=== PATIENT | male | born 1935 | race Caucasian/White ===

== ENCOUNTER 2022-03-12 16:25 | Emergency (ER) | payer MEDICARE, OTHER ==
--- NOTE | 2022-03-12 16:50 | ED Physician Documentation ---
PD HPI LOWER EXT INJURY - Stated complaint Stated Complaint: L LEG PX - Chief complaint Chief Complaint: Ext Problem - History obtained from History obtained from: Patient - Additional information Additional information: 86-year-old gentleman with history of stroke, otherwise generally fairly healthy was referred for the walk-in clinic for the evaluation of potential DVT in the left leg. He has had left calf pain for the last 4 days. There is no injury. It is mild at rest but worse when he walks. He denies history of DVT or PE. Review of Systems Constitutional: denies: Fever, Chills Throat: reports: Reviewed and negative Cardiac: reports: Reviewed and negative Respiratory: reports: Reviewed and negative PD PAST MEDICAL HISTORY - Present Medications Home Medications: Ambulatory Orders Medication Instructions Recorded Confirmed Aspirin [Aspirin EC] 325 mg PO DAILY 03/12/22 03/12/22 Atorvastatin Calcium [Lipitor] 80 mg PO DAILY 03/12/22 03/12/22 Levetiracetam [Spritam] 1,000 mg PO DAILY 03/12/22 03/12/22 Lisinopril [Zestril] 5 ng PO DAILY 03/12/22 03/12/22 Tamsulosin [Flomax] 0.4 mg PO DAILY 03/12/22 03/12/22 - Allergies Allergies/Adverse Reactions: Allergies Allergy/AdvReac Type Severity Reaction Status Date / Time No Known Drug Allergies Allergy Verified 03/12/22 16:35 PD ED PE NORMAL - Vitals Vital signs reviewed: Yes - General General: Alert and oriented X 3, No acute distress - Extremities Extremities: Other (No clear asymmetry of the legs, pedal perfusion bilaterally is normal. I am unable to elicit any tenderness of the left calf. He denies any pain above the knee.) - Neuro Neuro: Alert and oriented X 3, Normal speech - Psych Psych: Normal mood, Normal affect Results - Vitals Vitals: Vital Signs - 24 hr 03/12/22 03/12/22 16:31 18:14 Temperature 36.6 C Heart Rate 59 L 61 Respiratory 16 17 Rate Blood Pressure 121/48 L 122/65 O2 Saturation 99 99 Oxygen O2 Source Room air - Rads (name of study) Left leg DVT ultrasound Radiology: Prelim report reviewed (Negative per tech) Departure - Departure Disposition: 01 Home, Self Care Clinical Impression: Pain of left calf Condition: Good Record reviewed to determine appropriate education?: Yes Instructions: ED Muscle Pain Leg Cramps Comments: Ultrasound of your leg showed no evidence of blood clot or other abnormality. Follow-up with your doctor at the end of the week for recheck. Return for new or worsening symptoms. It is fine to use Tylenol heat and gentle stretching for the pain as well. Discharge Date/Time: 03/12/22 18:18
--- OUTSIDE RECORDS SUMMARY | 2022-03-12 17:02 | EXTERNAL MEDICAL SUMMARY RPT | Continuity of Care Document ---
:1935 Author Organization [facility] Address [address] [place] [address] Phone Care Team Providers Name Role Phone Unavailable Unavailable Unavailable Nataly Bookre Unavailable Unavailable Allergies No information. Encounters No information. Functional Status No information. Immunizations No information. Medications date description facility [id number] lisinopril [facility] [place] [id number]+0000 lisinopril [facility] [place] [id number]+0000 tamsulosin [facility] [place] [id number]+0000 aspirin [facility] [place] [id number]+0000 aspirin [facility] [place] [id number]+0000 atorvastatin [facility] [place] [id number]+0000 atorvastatin [facility] [place] [id number]+0000 lisinopril [facility] [place] [phone]+0000 lisinopril [facility] [place] [phone]+0000 lisinopril [facility] [place] [id number]+0000 lisinopril [facility] [place] [id number]+0000 levetiracetam [facility] [place] [id number]+0000 levetiracetam [facility] [place] [phone]+0000 atorvastatin [facility] [place] [id number]+0000 aspirin [facility] [place] [id number]+0000 tamsulosin [facility] [place] [id number]+0000 atorvastatin [facility] [place] [id number]+0000 atorvastatin [facility] [place] [phone]+0000 aspirin [facility] [place] [id number]+0000 tamsulosin [facility] [place] [id number]+0000 tamsulosin [facility] [place] [id number]+0000 atorvastatin [facility] [place] [phone]+0000 levetiracetam [facility] [place] [id number]+0000 levetiracetam [facility] [place] [id number]+0000 levetiracetam [facility] [place] [id number]+0000 levetiracetam [facility] [place] [phone]+0000 tamsulosin [facility] [place] [phone]+0000 tamsulosin [facility] [place] Problems No information. Procedures date description facility [id number]+0000 Visit Code Hold [facility] [place] [id number]+0000 Visit Code Hold [facility] [place] [id number]+0000 Visit Code Hold [facility] [place] Results/Labs test date author facility value unit interpret ation Result panel 1 (unknown) (no (unknown) (unknown) (no value) (units (unk nown) date) unknown) (unknown) (no (unknown) (unknown) [id number] (units (unkn own) date) unknown) (unknown) (no (unknown) (unknown) 03/09/22 (units (unkno wn) date) unknown) (unknown) (no (unknown) (unknown) 1. No biliary or (units (unknown) date) pancreatic ductal unknown) dilatation. (unknown) (no (unknown) (unknown) [address] (units (unknown) date) unknown) (unknown) (no (unknown) (unknown) 2. Gallbladder is (units (unknown) date) not distended. No unknown) gallstones seen. (unknown) (no (unknown) (unknown) 3. Small T2 (units (un known) date) hyperintense cysts unknown) in the liver and kidneys. (unknown) (no (unknown) (unknown) 4. (units (unkno wn) date) Diverticulosis. unknown) (unknown) (no (unknown) (unknown) Accession Number: (units (unknown) date) [id number] unknown) (unknown) (no (unknown) (unknown) Age/Sex: 86 / M (units (unknown) date) Date of Service: unknown) (unknown) (no (unknown) (unknown) [place], [place] (units ( unknown) date) [id number] unknown) (unknown) (no (unknown) (unknown) Approved by: (units (u nknown) date) Abel Hensley M.D. unknown) on 03/10/2022 at 10:26 (unknown) (no (unknown) (unknown) Bones and soft (units (unknown) date) tissues: No unknown) ventral hernias. Bone marrow is of normal overall (unknown) (no (unknown) (unknown) Bowel and (units (unkn own) date) peritoneum: unknown) Unenhanced bowel loops are normal in caliber. (unknown) (no (unknown) (unknown) COMPARISON: None. (units (unknown) date) unknown) (unknown) (no (unknown) (unknown) Coronal HASTE (units ( unknown) date) through the unknown) abdomen, axial 2-D FLASH in- and [id number], and (unknown) (no (unknown) (unknown) : 1935 (units (unknown) date) Acct:[id number] unknown) (unknown) (no (unknown) (unknown) Dictated by: (units (u nknown) date) Abel Hensley M.D. unknown) on 03/10/2022 at 10:20 (unknown) (no (unknown) (unknown) Diverticulosis. (units (unknown) date) No unknown) (unknown) (no (unknown) (unknown) FINDINGS: (units (unkn own) date) unknown) (unknown) (no (unknown) (unknown) IMPRESSION: (units (un known) date) unknown) (unknown) (no (unknown) (unknown) INDICATIONS: (units (u nknown) date) Personal history unknown) of other diseases of the digestiv (unknown) (no (unknown) (unknown) Image quality: (units (unknown) date) Excellent. unknown) (unknown) (no (unknown) (unknown) [facility] (units (unknown) date) unknown) (unknown) (no (unknown) (unknown) Loc: MRI (units (unkno wn) date) unknown) (unknown) (no (unknown) (unknown) Lung bases: No (units (unknown) date) basal pleural unknown) effusions. Heart size is normal. (unknown) (no (unknown) (unknown) Magnetic (units (unkno wn) date) Resonance Report unknown) (unknown) (no (unknown) (unknown) Nodes and (units (unkn own) date) vessels: No unknown) retroperitoneal or mesenteric adenopathy by size (unknown) (no (unknown) (unknown) Ordering (units (unkno wn) date) Provider: unknown) Tg Rivera D.O. (unknown) (no (unknown) (unknown) Other solid (units (un known) date) organs: Liver is unknown) normal in size. Small T2 hyperintense cysts. (unknown) (no (unknown) (unknown) PROCEDURE: MR (units ( unknown) date) ABDOMEN WO CON unknown) (unknown) (no (unknown) (unknown) Pancreas and (units (u nknown) date) biliary system: unknown) Intra- and extra-hepatic biliary ducts are non (unknown) (no (unknown) (unknown) Pancreas is (units (un known) date) normal in unknown) morphology, without adjacent soft tissue edema. (unknown) (no (unknown) (unknown) Pancreatic duct (units (unknown) date) is unknown) (unknown) (no (unknown) (unknown) Patient: (units (unkno wn) date) Mars Cedeño N unknown) MR#: M (unknown) (no (unknown) (unknown) Procedure: MR (units ( unknown) date) abdomen wo con unknown) (unknown) (no (unknown) (unknown) Signed (units (unkno wn) date) unknown) (unknown) (no (unknown) (unknown) Spleen is (units (unkn own) date) unknown) (unknown) (no (unknown) (unknown) T2 FSE with fat (units (unknown) date) saturation through unknown) the biliary system and pancreas. Oblique (unknown) (no (unknown) (unknown) TECHNIQUE: (units (unk nown) date) unknown) (unknown) (no (unknown) (unknown) and inferior vena (units (unknown) date) cava are normal in unknown) size. Atherosclerotic plaque is present. (unknown) (no (unknown) (unknown) axial thin-slice (units (unknown) date) HASTE, radial unknown) thick-slab HASTE centered on the extrahepatic (unknown) (no (unknown) (unknown) bile ducts. (units (un known) date) unknown) (unknown) (no (unknown) (unknown) breath-hold (units (un known) date) unknown) (unknown) (no (unknown) (unknown) coronal and (units (un known) date) unknown) (unknown) (no (unknown) (unknown) criteria. Aorta (units (unknown) date) unknown) (unknown) (no (unknown) (unknown) dilated. (units (unkno wn) date) unknown) (unknown) (no (unknown) (unknown) distended. No (units ( unknown) date) unknown) (unknown) (no (unknown) (unknown) free fluid. (units (un known) date) unknown) (unknown) (no (unknown) (unknown) gallstones (units (unk nown) date) identified. unknown) (unknown) (no (unknown) (unknown) hydronephrosis. (units (unknown) date) Small T2 unknown) hyperintense cysts. (unknown) (no (unknown) (unknown) normal in (units (unkn own) date) caliber, without unknown) developmental anomalies. Gallbladder is not (unknown) (no (unknown) (unknown) normal in size. (units (unknown) date) No adrenal unknown) nodules. Both kidneys are normal in size, without (unknown) (no (unknown) (unknown) signal. (units (unkno wn) date) unknown) Social History date description facility + Never smoker [facility] [place] Vital Signs date measurement value units [id number]+0000 BMI BMI 21.78 kg/m2 19212857248700+0000 BP_diastolic BP_diastolic 69 mm[H g] 17512250016862+0000 BP_systolic BP_systolic 117 mm[Hg] 23119974970261+0000 heart_rate heart_rate 70 /min 58265946751553+0000 height_metric height_metric 182.88 cm 22326128692895+0000 height_standard height_standard 72 in [id number]+0000 respiration_rate respiration_rate 16 /min 84886229626278+0000 temperature_metric temperature_metric 36.11 C [id number]+0000 temperature_standard temperature_standard 9 7 F 29247316987784+0000 weight_metric weight_metric 72.57 kg 82204765148774+0000 weight_standard weight_standard 160 lb 59160401685308+0000 BMI BMI 21.78 kg/m2 25523470658347+0000 BP_diastolic BP_diastolic 58 mmHg 50584034318898+0000 BP_systolic BP_systolic 116 mmHg 83970217271006+0000 heart_rate heart_rate 63 /min 11036805767638+0000 height_metric height_metric 182.88 cm 57708976986526+0000 height_standard height_standard 72 in 56881931566231+0000 respiration_rate respiration_rate 15 /min 96438281955561+0000 temperature_metric temperature_metric 36.39 C 25644944550348+0000 temperature_standard temperature_standard 9 7.5 F 43341402933021+0000 weight_metric weight_metric 72.57 kg 11731784090876+0000 weight_standard weight_standard 160 lb
[2022-03-12 18:15] VITALS: BP 122/65
--- NOTE | 2022-03-12 18:43 | Ultrasound Report ---
PROCEDURE: Duplex Ext Veins Left INDICATIONS: left calf pain, swelling; ? dvt TECHNIQUE: Real-time imaging, as well as color and pulse Doppler interrogation, were performed of the lower extr emity deep veins from the inguinal ligament to the popliteal fossa. COMPARISON: None. FINDINGS: The deep veins are normally compressible, and free of intraluminal thrombus. Color and pu lse Doppler demonstrate normal phasic intraluminal flow. There is normal augmentation response to di stal compression maneuver. IMPRESSION: No evidence of left lower extremity deep venous thrombosis. Reviewed by: Amandeep Diego MD on 03/12/2022 6:41 PM PDT Approved by: Amandeep Diego MD on 03/12/2022 6:41 PM PDT Station ID: [id number]
== END 2022-03-12 18:18 | disposition home or self-care (01) ==
LOC: ED 16:25
DX: M79.662 Pain in left lower leg (principal)
CPT/HCPCS: 99282; 99284

== ENCOUNTER 2022-11-03 11:42 | Outpatient (CLI) | payer MEDICARE, OTHER ==
[2022-11-03] MEDS ORDERED: iohexoL-300 100 ML VIAL ONE (11:55)
[2022-11-03] MEDS ORDERED: iohexoL-300 100 ML VIAL IVP ONE (12:18)
--- NOTE | 2022-11-03 15:27 | CT Report ---
PROCEDURE: IVP INDICATIONS: PROSTATIC HYPERPLASIA CONTRAST: 140ml Omnipaque 300 TECHNIQUE: After the administration of intravenous contrast, 5 mm thick sections acquired from the diaphragms to the symphysis. 5 mm thick coronal and sagittal reformats were acquired. For radiation dose reducti on, the following was used: automated exposure control, adjustment of mA and/or kV according to parisa ent size. COMPARISON: None. FINDINGS: Image quality: Excellent. Urinary system: Both kidneys are mildly atrophic in size. Scattered subcentimeter bilateral low-atte nuation foci are present. No hydronephrosis or nephrolithiasis on pre-contrast images. No solid mass es or complex cysts which require follow up. The opacified renal calyces and ureters appear normal, w ithout filling defect. Bladder wall thickness is normal, accounting for underdistention. No calcifie d bladder stones. Potential filling defects within the bladder cannot be evaluated as the bladder did not fill with contrast during exam. OTHER Lung bases and heart: Unremarkable. Liver: Inferior medial right hepatic lobe cyst measuring 7 mm, Hounsfield units 15 is present. This i s most consistent with a simple cyst. Gallbladder and biliary tree: L bladder is unremarkable. No biliary dilation. Spleen: No splenomegaly. Pancreas: No pancreatic ductal dilation. Adrenals: No adrenal nodule. Bowel and peritoneum: No bowel distension. No pathologic free fluid. Significant colonic diverticula are present without associated inflammatory change. Abdominal Lymph nodes: No central or retroperitoneal adenopathy. Vessels: Unremarkable. Reproductive organs: Unremarkable. Pelvic Lymph nodes: Unremarkable. Bones: No aggressive osseous abnormality. Other: Small fat-containing inguinal hernias are present.. Prostate gland is mildly prominent. IMPRESSION: No renal, ureteral or bladder calculi. It is noted that the bladder did not fill with contrast during the exam limiting evaluation for filling defects which can indicate mass. Prostate is enlarged. Scattered bilateral subcentimeter low-attenuation renal foci suggestive of simple cysts although too small to definitively characterize. Reviewed by: Naida Goodrich MD on 11/03/2022 3:26 PM PDT Approved by: Naida Goodrich MD on 11/03/2022 3:26 PM PDT Station ID: [id number]
== END 2022-11-03 11:43 | disposition home or self-care (01) ==
LOC: DI 11:42
PROVIDERS: ATTEND Urology
DX: R31.29 Other microscopic hematuria (principal); N40.0 Benign prostatic hyperplasia without lower urinary tract symptoms
CPT/HCPCS: 74178; Q9967

== ENCOUNTER 2023-04-08 12:01 | Emergency (ER) | payer MEDICARE, OTHER ==
--- OUTSIDE RECORDS SUMMARY | 2023-04-08 12:26 | EXTERNAL MEDICAL SUMMARY RPT | Continuity of Care Document ---
Author Name Unknown Address [address] [place] [address] Phone Organization [facility] Address [address] [place] [address] Phone Care Team Providers Care Opener Verifier [employer] Name Role Phone Unavailable Unavailable Unavailable Nataly Booker, Maynor Unavailable Unavailable Henriquez Patient Registrar Ii, Priya Unavaila ble Unavailable Medications date description facility 2023-04-08 00:00 lisinopril [facility] [place] 2023-04-08 00:00 lisinopril [facility] 2023-04-08 00:00 tamsulosin [facility] [place] 2023-04-08 00:00 tamsulosin [facility] [place] 2023-04-08 00:00 aspirin [facility] [place] 2023-04-08 00:00 aspirin [facility] [place] 2023-04-08 00:00 aspirin [facility] [place] 2023-04-08 00:00 aspirin [facility] [place] 2023-04-08 00:00 atorvastatin [facility] [place] 2023-04-08 00:00 atorvastatin [facility] [place] 2023-04-08 00:00 lisinopril [facility] [place] 2023-04-08 00:00 lisinopril [facility] [place] 2023-04-08 00:00 lisinopril [facility] [place] 2023-04-08 00:00 lisinopril [facility] [place] 2023-04-08 00:00 lisinopril [facility] [place] 2023-04-08 00:00 lisinopril [facility] [place] 2023-04-08 00:00 levetiracetam [facility] [place] 2023-04-08 00:00 levetiracetam [facility] [place] 2023-04-08 00:00 atorvastatin [facility] [place] 2023-04-08 00:00 atorvastatin [facility] [place] 2023-04-08 00:00 aspirin [facility] [place] 2023-04-08 00:00 aspirin [facility] [place] 2023-04-08 00:00 tamsulosin [facility] [place] 2023-04-08 00:00 tamsulosin [facility] [place] 2023-04-08 00:00 atorvastatin [facility] [place] 2023-04-08 00:00 atorvastatin [facility] [place] 2023-04-08 00:00 aspirin [facility] [place] 2023-04-08 00:00 aspirin [facility] [place] 2023-04-08 00:00 tamsulosin [facility] [place] 2023-04-08 00:00 tamsulosin [facility] [place] 2023-04-08 00:00 atorvastatin [facility] [place] 2023-04-08 00:00 atorvastatin [facility] [place] 2023-04-08 00:00 levetiracetam [facility] [place] 2023-04-08 00:00 levetiracetam [facility] [place] 2023-04-08 00:00 levetiracetam [facility] [place] 2023-04-08 00:00 levetiracetam [facility] [place] 2023-04-08 00:00 levetiracetam [facility] [place] 2023-04-08 00:00 levetiracetam [facility] [place] 2023-04-08 00:00 tamsulosin [facility] [place] 2023-04-08 00:00 tamsulosin [facility] [place] Problems date description facility 2023-04-08 00:00 Blood in urine [facility] [place] 2023-04-08 00:00 Bilirubinuria [facility] [place] 2023-04-08 00:00 Abdominal pain, epigastric [facility] [place] 2023-04-08 00:00 Epigastric pain [facility] [place] 2023-04-08 00:00 Dysuria [facility] [place] 2023-04-08 00:00 Hematuria, unspecified [facility] [place] 2023-04-08 00:00 Biliuria [facility] [place] Procedures date description facility 2023-04-08 00:00 Visit Code Hold [facility] [place] 2023-04-08 00:00 POC URINALYSIS DIP [facility] [place] Results/Labs test date facility value unit notes Social History date description facility 2023-04-08 00:00 Never smoker [facility] [place] Vital Signs date measurement value units 2023-04-08 00:00 BMI 22.30 kg/m2 2023-04-08 00:00 BP_diastolic 65 mmHg 2023-04-08 00:00 BP_systolic 120 mmHg 2023-04-08 00:00 heart_rate 74 /min 2023-04-08 00:00 height_metric 182.88 cm 2023-04-08 00:00 height_standard 72 in 2023-04-08 00:00 respiration_rate 16 /min 2023-04-08 00:00 temperature_metric 36.56 C 2023-04-08 00:00 temperature_standard 97.8 F 2023-04-08 00:00 weight_metric 74.3 kg 2023-04-08 00:00 weight_standard 163.8 lb
[2023-04-08 12:47] LABS: BASOPHILS % (AUTO) 0.5 %; EOSINOPHILS % (AUTO) 0.4 %; HCT - HEMATOCRIT 43.5 % (42.0-52.0); LYMPHOCYTES # (AUTO) 1.8 10^3/uL (1.5-3.5); MEAN CORPUSCULAR HGB CONC 32.2 g/dL (32.0-36.0); MEAN CORPUSCULAR VOLUME 99.5 fL (80.0-94.0); MEAN PLATELET VOLUME 9.3 fL (7.4-11.4); MONOCYTES # (AUTO) 0.7 10^3/uL (0.0-1.0); MONOCYTES % (AUTO) 8.1 %; NEUTROPHILS # (AUTO) 5.7 10^3/uL (1.5-6.6); NEUTROPHILS % (AUTO) 68.5 %; PLT - PLATELET COUNT 182 10^3/uL (130-450); RED BLOOD COUNT 4.37 10^6/uL (4.70-6.10); RED CELL DISTRIBUTION WIDTH 12.6 % (12.0-15.0); WHITE BLOOD COUNT 8.3 x10^3/uL (4.8-10.8)
[2023-04-08 12:48] LABS: BILIRUBIN,URINE NEGATIVE (NEGATIVE); GLUCOSE, URINE (UA) NEGATIVE (NEGATIVE); KETONES,URINE (UA) NEGATIVE (NEGATIVE); LEUKOCYTE ESTERASE, URINE NEGATIVE (NEGATIVE); NITRITE,URINE NEGATIVE (NEGATIVE); OCCULT BLOOD,URINE MODERATE (NEGATIVE); PH,URINE 6.5 PH (5.0-7.5); PROTEIN,URINE NEGATIVE (NEGATIVE); UROBILINOGEN,URINE 1 (NORMAL) E.U./dL (NORMAL)
[2023-04-08 12:49] LABS: CLARITY,URINE CLEAR (CLEAR)
[2023-04-08 12:58] LABS: BACTERIA,URINE Rare /HPF (None Seen); RBC,URINE 0-5 /HPF (0-5); SQUAMOUS EPITHELIAL CELL,UR RARE Squamous (<= Few); WBC,URINE 0-3 /HPF (0-3)
[2023-04-08 12:59] LABS: ALBUMIN 3.9 g/dL (3.2-5.5); ALBUMIN/GLOBULIN RATIO 1.1 (1.0-2.2); BILIRUBIN,TOTAL 0.8 mg/dL (0.2-1.0); CALCIUM 9.4 mg/dL (8.5-10.3); CREATININE 0.9 mg/dL (0.6-1.3); POTASSIUM 4.2 mmol/L (3.5-4.5); TOTAL PROTEIN 7.6 g/dL (6.4-8.9)
--- NOTE | 2023-04-08 13:39 | ED Physician Documentation ---
History of Present Illness - Stated complaint Stated Complaint: STOMACH PX - Chief complaint Chief Complaint: Abd Pain - Additonal information Additional information: Very pleasant 87-year-old male presents emergency department for evaluation of 3 weeks abdominal pain. Describes it as constant. Mostly upper abdomen with some periumbilical radiation. No fevers, nausea or vomiting. He has a history of pancreatitis as well as GERD but states that this feels entirely different. No melena or hematochezia. He is a non-smoker nondrinker. Was seen at the local walk-in clinic and referred to the ER for further evaluation. Review of Systems Constitutional: denies: Fever Cardiac: reports: Reviewed and negative Respiratory: reports: Reviewed and negative GI: reports: Abdominal Pain. denies: Nausea, Vomiting, Constipation, Bloody / black stool : reports: Reviewed and negative Skin: reports: Reviewed and negative PD PAST MEDICAL HISTORY - Past Medical History Neuro: CVA, Seizure disorder GI: GERD, Pancreatitis - Past Surgical History General: Hiatal hernia repair - Present Medications Home Medications: Ambulatory Orders Medication Instructions Recorded Confirmed Aspirin [Aspirin EC] 325 mg PO DAILY 03/12/22 03/12/22 Atorvastatin Calcium [Lipitor] 80 mg PO DAILY 03/12/22 03/12/22 Levetiracetam [Spritam] 1,000 mg PO DAILY 03/12/22 03/12/22 Lisinopril [Zestril] 5 ng PO DAILY 03/12/22 03/12/22 Tamsulosin [Flomax] 0.4 mg PO DAILY 03/12/22 03/12/22 - Allergies Allergies/Adverse Reactions: Allergies Allergy/AdvReac Type Severity Reaction Status Date / Time No Known Drug Allergies Allergy Verified 03/12/22 16:35 - Social History Does the pt smoke?: No Smoking Status: Never smoker Does the pt drink ETOH?: Yes Does the pt have substance abuse?: No - Immunizations Immunizations are current?: Yes - POLST Patient has POLST: No PD ED PE NORMAL - General General: Alert and oriented X 3, No acute distress - Cardiac Cardiac: RRR, No murmur - Respiratory Respiratory: No respiratory distress, Clear bilaterally - Abdomen Abdomen: Normal bowel sounds, Soft. No: Non tender (No percussion tenderness. No light or deep palpation tenderness. I did not elicit flank or CVA tenderness. He does have a reducible umbilical hernia) - Back Back: No CVA TTP - Derm Derm: Normal color, Warm and dry, No rash - Extremities Extremities: No deformity - Neuro Neuro: Alert and oriented X 3 Eye Opening: Spontaneous Motor: Obeys Commands Verbal: Oriented GCS Score: 15 Results - Vitals Vitals: Vital Signs - 24 hr 04/08/23 12:18 Temperature 37.1 C Heart Rate 65 Respiratory 18 Rate Blood Pressure 115/86 H O2 Saturation 98 Oxygen O2 Source Room air - Labs Labs: Laboratory Tests 04/08/23 04/08/23 04/08/23 12:35 12:40 12:40 WBC 8.3 RBC 4.37 L Hgb 14.0 Hct 43.5 MCV 99.5 H MCH 32.0 H MCHC 32.2 RDW 12.6 Plt Count 182 MPV 9.3 Neut # (Auto) 5.7 Lymph # (Auto) 1.8 [place] # (Auto) 0.7 Eos # (Auto) 0.0 Baso # (Auto) 0.0 Absolute Nucleated RBC 0.00 Nucleated RBC % 0.0 Sodium 137 Potassium 4.2 Chloride 100 L Carbon Dioxide 32 Anion Gap 5.0 L BUN 15 Creatinine 0.9 Estimated GFR (MDRD) 80 L Glucose 93 Calcium 9.4 Total Bilirubin 0.8 AST 17 ALT 18 Alkaline Phosphatase 105 Total Protein 7.6 Albumin 3.9 Globulin 3.7 Albumin/Globulin Ratio 1.1 Lipase 11 Urine Color YELLOW Urine Clarity CLEAR Urine pH 6.5 Ur Specific [place] 1.015 Urine Protein NEGATIVE Urine Glucose (UA) NEGATIVE Urine Ketones NEGATIVE Urine Occult Blood MODERATE H Urine Nitrite NEGATIVE Urine Bilirubin NEGATIVE Urine Urobilinogen 1 (NORMAL) Ur Leukocyte Esterase NEGATIVE Urine RBC 0-5 Urine WBC 0-3 Ur Squamous Epith Cells RARE Squamous Urine Bacteria Rare Ur Microscopic Review INDICATED Urine Culture Comments NOT INDICATED - Rads (name of study) ct abd w Relevant Findings:: Final report received (Moderate amount of stool within the colon. No findings of acute pancreatitis. Extensive colonic diverticulosis but no diverticulitis fat-containing right inguinal hernia. Fat-containing periumbilical hernia.) PD Medical Decision Making - ED course Complexity details: reviewed results, re-evaluated patient, d/w patient ED course: Very pleasant well-appearing 87-year-old male presents emergency department for evaluation several weeks upper abdominal pain including pain in the periumbilical area. He has a history of GERD, acid reflux, kidney stones, pancreatitis as well as diverticulitis. On exam he had some generalized upper abdominal pain but was nonfocal. Negative Lambert's. His vital signs were without fever or tachycardia or hypotension. We did obtain CBC, electrolytes and urinalysis. Per my interpretation CBC without acute worrisome abnormality. His electrolytes also showed no worrisome abnormality. He had normal kidney and liver function tests. Urinalysis did show moderate amount of blood. A CT of the abdomen completed to evaluate for possibility of diverticulitis, ureter and renal colic as well as appendicitis and pancreatitis showed multiple incidental findings but no acute source of abdominal pain. These incisional findings include moderate stool within the colon, diverticulosis without diverticulitis, periumbilical and inguinal hernia, remote L2 wedge deformity and pectus excavated him. I discussed the findings with the patient. I suspect the stool burden likely is the cause of his symptoms. He is advised to use some MiraLAX for the next several days. He will follow closely with his PCP. May benefit from a screening colonoscopy. We did discuss the usual emergent return precautions for worsening symptoms including fevers and uncontrolled vomiting. Departure - Departure Disposition: 01 Home, Self Care Clinical Impression: Upper abdominal pain Condition: Stable Record reviewed to determine appropriate education?: Yes Comments: You are seen today in the emergency department because you have been having pain in your upper abdomen and around your bellybutton. As discussed at the bedside your labs did not show any obvious worrisome abnormalities. We did do a CT of your abdomen and as discussed at the bedside there were multiple incidental findings that included an old lumbar compression fracture, 2 hernias, diverticulosis without diverticulitis and likely the most obvious finding which is a fair amount of stool throughout your colon. I am I recommend that you take MiraLAX once or twice daily for the next several days until you have 3 or 4 watery bowel movements. If your symptoms do not improve after use of MiraLAX I would follow closely with your primary doctor. You may at that point benefit from a referral for a colonoscopy to rule out colon cancer as a CT is not sensitive for this. Return to the emergency department for any new or worsening symptoms, fevers uncontrolled vomiting. Forms: PCP List
--- NOTE | 2023-04-08 15:17 | CT Report ---
PROCEDURE: ABDOMEN/PELVIS W INDICATIONS: RUQ,LUQ; periumbilical pain; hx of pancreatitis CONTRAST: 100ml omni 300 TECHNIQUE: After the administration of IV contrast, 5 mm thick sections acquired from the diaphragms to the symp hysis. 5 mm thick coronal and sagittal reformats were acquired. For radiation dose reduction, the f ollowing was used: automated exposure control, adjustment of mA and/or kV according to patient size. COMPARISON: 11/03/2022 FINDINGS: Image quality: Excellent. Lung bases and heart: Unremarkable. Liver: No solid mass. Gallbladder and biliary tree: Within normal limits. Spleen: No splenomegaly. Pancreas: No pancreatic ductal dilation. Adrenals: No adrenal nodule. Kidneys and ureters: No hydronephrosis. No renal cystic lesion which requires follow up. No solid mas s. Bowel and peritoneum: There is a moderate volume of stool seen within the colon. Extensive distal col onic diverticulosis is seen, without findings of active diverticulitis. A normal appendix is seen. No dilated loops of small bowel are seen. The stomach is relatively decompressed at the time of this study, limiting its evaluation. Lymph nodes: No central or retroperitoneal adenopathy. Vessels: No infrarenal aortic aneurysm. Atherosclerotic calcification is seen. PELVIS Reproductive organs: Unremarkable. Bladder: No abnormal wall thickening, accounting for underdistension. Pelvic lymph nodes: No pelvic adenopathy by size criteria. Bones: No aggressive osseous abnormality. Pectus excavatum deformity is partially seen. There is a remote, stable L2 anterior wedge deformity. Focal lower lumbar spine degenerative change i s seen. Other: There is a moderate fat-containing periumbilical hernia. There is a moderately sized right ing uinal hernia seen, containing fat. IMPRESSION: There is a moderate amount of stool seen within the colon. Please correlate with clinical constipatio n. No findings of active pancreatitis are seen. Extensive distal colonic diverticulosis, yet without findings of active diverticulitis. Additional findings: Pectus excavatum deformity Moderate fat-containing periumbilical hernia Remote, stable L2 anterior wedge deformity Focal lower lumbar spine degenerative change Fat-containing right inguinal hernia. Reviewed by: Oscar Xavier MD on 04/08/2023 2:16 PM AKULI Approved by: Oscar Xavier MD on 04/08/2023 2:16 PM AKULI Station ID: [id number]
[2023-04-08 16:16] VITALS: BP 136/75; O2SAT 94
[2023-04-08] MEDS ORDERED: iohexoL-300 100 ML VIAL IVP ONE (19:19)
== END 2023-04-08 16:12 | disposition home or self-care (01) ==
LOC: ED 12:01
DX: R10.10 Upper abdominal pain, unspecified (principal)
CPT/HCPCS: 36415; 74177; 80053; 81001; 83690; 85025; 99283; 99284; Q9967; 81003; 87086

== ENCOUNTER 2023-05-04 12:13 | Emergency (ER) | payer MEDICARE, OTHER ==
--- NOTE | 2023-05-04 13:19 | XRAY Report ---
PROCEDURE: Chest 2 View X-Ray INDICATIONS: cough TECHNIQUE: 2 views of the chest were acquired. COMPARISON: None. FINDINGS: Surgical changes and devices: None. Lungs and pleura: No pleural effusions or pneumothorax. Possible right hilar masslike opacity. Right upper lung field opacity may represent partial collapse of the right upper lobe.. Mediastinum: Mediastinal contours appear normal. Heart size is normal. Bones and chest wall: No suspicious bony lesions. Overlying soft tissues appear unremarkable. IMPRESSION: Possible right hilar mass with right upper lung field opacity which may represent partial collapse of the right upper lobe. CT chest is recommended for further evaluation. Reviewed by: Shine Cobos MD on 05/04/2023 1:18 PM PST Approved by: Shine Cobos MD on 05/04/2023 1:18 PM PST Station ID: [id number]
[2023-05-04 15:23] LABS: BASOPHILS # (AUTO) 0.1 10^3/uL (0.0-0.1); BASOPHILS % (AUTO) 0.4 %; HCT - HEMATOCRIT 38.3 % (42.0-52.0); LYMPHOCYTES # (AUTO) 2.1 10^3/uL (1.5-3.5); LYMPHOCYTES % (AUTO) 14.9 %; MEAN CORPUSCULAR HEMOGLOBIN 30.9 pg (27.0-31.0); MEAN CORPUSCULAR HGB CONC 31.3 g/dL (32.0-36.0); MEAN CORPUSCULAR VOLUME 98.7 fL (80.0-94.0); MEAN PLATELET VOLUME 8.5 fL (7.4-11.4); MONOCYTES % (AUTO) 7.3 %; NEUTROPHILS # (AUTO) 10.6 10^3/uL (1.5-6.6); NEUTROPHILS % (AUTO) 76.5 %; PLT - PLATELET COUNT 254 10^3/uL (130-450); RED BLOOD COUNT 3.88 10^6/uL (4.70-6.10); RED CELL DISTRIBUTION WIDTH 13.1 % (12.0-15.0); WHITE BLOOD COUNT 13.8 x10^3/uL (4.8-10.8)
[2023-05-04 15:40] LABS: B. PARAPERTUSSIS- RESP PCR PAN NOT DETECTED; B. PERTUSSIS- RESP PCR PANEL NOT DETECTED; C. PNEUMONIAE- RESP PCR PANEL NOT DETECTED; CORONAVIRUS 229E-RESP PCR NOT DETECTED; CORONAVIRUS HKU1-RESP PCR NOT DETECTED; CORONAVIRUS NL63-RESP PCR NOT DETECTED; CORONAVIRUS OC43-RESP PCR NOT DETECTED; HUMAN METAPNEUMOVIRUS NOT DETECTED; INFLUENZA A- RESP PCR PANEL NOT DETECTED; INFLUENZA B - RESP PCR PANEL NOT DETECTED; M. PNEUMONIAE- RESP PCR PANEL NOT DETECTED; PARAINFLUENZA VIRUS 1 NOT DETECTED; PARAINFLUENZA VIRUS 2 NOT DETECTED; PARAINFLUENZA VIRUS 3 NOT DETECTED; PARAINFLUENZA VIRUS 4 NOT DETECTED; RHINOVIRUS/ENTEROVIRUS NOT DETECTED; RSV- RESP PCR PANEL NOT DETECTED; SARS-CoV-2 -RESP PCR PANEL NOT DETECTED
[2023-05-04 15:51] LABS: ALBUMIN 3.1 g/dL (3.2-5.5); ALBUMIN/GLOBULIN RATIO 0.6 (1.0-2.2); ALKALINE PHOSPHATASE 83 IU/L (42-121); ALT ALANINE AMINOTRANSFERASE 61 IU/L (10-60); AST ASPARTATE AMINOTRANSFERASE 36 IU/L (10-42); BILIRUBIN,TOTAL 0.7 mg/dL (0.2-1.0); BUN - BLOOD UREA NITROGEN 16 mg/dL (6-20); CALCIUM 8.9 mg/dL (8.5-10.3); CARBON DIOXIDE - CO2 30 mmol/L (21-32); CHLORIDE 99 mmol/L (101-111); CREATININE 0.9 mg/dL (0.6-1.3); GFR - MDRD 80 (>89); GLUCOSE 98 mg/dL (74-104); POTASSIUM 3.6 mmol/L (3.5-4.5); SODIUM 137 mmol/L (135-145); TOTAL PROTEIN 7.9 g/dL (6.4-8.9)
[2023-05-04 15:53] LABS: LIPASE < 10 U/L (11-82)
--- NOTE | 2023-05-04 16:04 | ED Physician Documentation ---
History of Present Illness - Stated complaint Stated Complaint: COUGH - Chief complaint Chief Complaint: Resp - History obtained from History obtained from: Patient - History of Present Illness Timing: How many weeks ago (2) Pain level max: 0 Pain level now: 0 - Additonal information Additional information: Patient is an 87-year-old male who presents to the emergency department with 2 weeks of coughing. He states that happens mainly at night, mild phlegm. No pain. No fevers. No chills. He thinks it is due to his reflux. No difficulty breathing. No wheezing. No difficulty speaking. No rhinorrhea or congestion. Review of Systems Constitutional: denies: Fever, Chills Throat: denies: Sore throat Cardiac: denies: Chest pain / pressure, Palpitations Respiratory: reports: Cough (Mostly dry). denies: Dyspnea, Wheezing GI: denies: Abdominal Pain, Nausea, Vomiting, Diarrhea Skin: denies: Rash Musculoskeletal: denies: Neck pain, Back pain Neurologic: denies: Headache PD PAST MEDICAL HISTORY - Past Medical History Past Medical History: Yes Neuro: CVA, Seizure disorder GI: GERD, Pancreatitis - Past Surgical History Past Surgical History: Yes General: Hiatal hernia repair - Present Medications Home Medications: Ambulatory Orders Medication Instructions Recorded Confirmed Aspirin [Aspirin EC] 325 mg PO DAILY 03/12/22 05/04/23 Atorvastatin Calcium [Lipitor] 80 mg PO DAILY 03/12/22 05/04/23 Levetiracetam [Spritam] 1,000 mg PO DAILY 03/12/22 05/04/23 Lisinopril [Zestril] 5 ng PO DAILY 03/12/22 05/04/23 Tamsulosin [Flomax] 0.4 mg PO DAILY 03/12/22 05/04/23 Amox/Clav 875/125 [Augmentin] 1 tab PO Q12H #42 tablet 05/04/23 - Allergies Allergies/Adverse Reactions: Allergies Allergy/AdvReac Type Severity Reaction Status Date / Time No Known Drug Allergies Allergy Verified 05/04/23 12:23 - Social History Does the pt smoke?: No Smoking Status: Never smoker Does the pt drink ETOH?: Yes Does the pt have substance abuse?: No - Immunizations Immunizations are current?: Yes - POLST Patient has POLST: No PD ED PE NORMAL - Vitals Vital signs reviewed: Yes - General General: Alert and oriented X 3, No acute distress - HEENT HEENT: PERRL, Moist mucous membranes - Neck Neck: Supple, no meningeal sign - Cardiac Cardiac: RRR, Strong equal pulses - Respiratory Respiratory: No respiratory distress, Clear bilaterally - Abdomen Abdomen: Soft, Non tender, Non distended - Derm Derm: Warm and dry, No rash - Extremities Extremities: No edema, No calf tenderness / cord - Neuro Neuro: Alert and oriented X 3 - Psych Psych: Normal mood, Normal affect Results - Vitals Vitals: Vital Signs - 24 hr 05/04/23 05/04/23 12:23 17:37 Temperature 36.8 C Heart Rate 100 76 Respiratory 16 18 Rate Blood Pressure 106/66 133/80 H O2 Saturation 94 98 Oxygen O2 Source Room air - Labs Labs: Laboratory Tests 05/04/23 05/04/23 05/04/23 14:43 15:17 15:17 WBC 13.8 H RBC 3.88 L Hgb 12.0 L Hct 38.3 L MCV 98.7 H MCH 30.9 MCHC 31.3 L RDW 13.1 Plt Count 254 MPV 8.5 Neut # (Auto) 10.6 H Lymph # (Auto) 2.1 [place] # (Auto) 1.0 Eos # (Auto) 0.0 Baso # (Auto) 0.1 Absolute Nucleated RBC 0.00 Nucleated RBC % 0.0 Sodium 137 Potassium 3.6 Chloride 99 L Carbon Dioxide 30 Anion Gap 8.0 BUN 16 Creatinine 0.9 Estimated GFR (MDRD) 80 L Glucose 98 Calcium 8.9 Total Bilirubin 0.7 AST 36 ALT 61 H Alkaline Phosphatase 83 Total Protein 7.9 Albumin 3.1 L Globulin 4.8 H Albumin/Globulin Ratio 0.6 L Lipase < 10 L Nasal Adenovirus (PCR) NOT DETECTED Nasal B. parapertussis DNA (PCR) NOT DETECTED Nasal Coronavir 229E PCR NOT DETECTED Nasal Coronavir HKU1 PCR NOT DETECTED Nasal Coronavir NL63 PCR NOT DETECTED Nasal Coronavir OC43 PCR NOT DETECTED Nasal Enterovir/Rhinovir PCR NOT DETECTED Nasal Influenza B PCR NOT DETECTED Nasal Influenza A PCR NOT DETECTED Nasal Parainfluen 1 PCR NOT DETECTED Nasal Parainfluen 2 PCR NOT DETECTED Nasal Parainfluen 3 PCR NOT DETECTED Nasal Parainfluen 4 PCR NOT DETECTED Nasal RSV (PCR) NOT DETECTED Nasal B.pertussis DNA PCR NOT DETECTED Nasal C.pneumoniae (PCR) NOT DETECTED [place] Human Metapneumo PCR NOT DETECTED Nasal M.pneumoniae (PCR) NOT DETECTED Nasal SARS-CoV-2 (PCR) NOT DETECTED - Rads (name of study) cxr Relevant Findings:: Final report received, See rad report chest CT Relevant Findings:: Final report received, See rad report PD Medical Decision Making - ED course Complexity details: reviewed results, re-evaluated patient, considered differential, d/w patient, d/w family ED course: The patient's chest x-ray was suspicious for a mass versus infection versus both. CT scan was performed does show a cavitary lesion, unclear if this is an abscess or tumor. There does appear to be infection surrounding it. Does have an elevated white blood cell count. No fevers. No hypoxia. We will place the patient on antibiotics and have him follow-up with his PCP for further care, possibly to have biopsy after the infection has cleared. He will return sooner if he worsens or fails to improve as expected. No TB history. No travel history. No cancer history. Patient counseled regarding signs and symptoms for which I believe and urgent re-evaluation would be necessary. Patient with good understanding of and agreement to plan and is comfortable going home at this time This document was made in part using voice recognition software. While efforts are made to proofread this document, sound alike and grammatical errors may occur. IMPRESSION: Possible right hilar mass with right upper lung field opacity which may represent partial collapse of the right upper lobe. CT chest is recommended for further evaluation. Departure - Departure Disposition: 01 Home, Self Care Clinical Impression: Lung abscess Qualifiers: Pulmonary abscess pneumonia presence: with pneumonia Laterality: right Lung location: upper lobe of lung Qualified Code(s): J85.1 - Abscess of lung with pneumonia Condition: Good Instructions: ED Pneumonia Adult Follow-Up: JERICA JACKSON MD [Physician No Access] - Within 1 week Prescriptions: Amox/Clav 875/125 [Augmentin] 1 tab PO Q12H #42 tablet Comments: Your CT scan reading is below. It appears that you have a masslike consolidation measuring 7.6 x 7.5 cm. There appear to be pleural calcifications in the central region does show cavitation. Could be infectious, could be a malignancy or combination of the 2. [address] you on antibiotics and have you follow-up closely with your doctor. They may want to arrange for a biopsy of the area versus a repeat CT scan after finishing the antibiotics. Please take all antibiotics until gone. Please return if you worsen. Your prescription was sent to [facility] in [place]. PROCEDURE: CHEST W INDICATIONS: possible RUL mass on cxr CONTRAST: 100mL Omni 300 TECHNIQUE: After the administration of intravenous contrast, 1 mm axial images were acquired from the pulmonary apices through the posterior costophrenic angles. Axial 5 mm soft tissue kernel reconstructions were performed as well as 8 mm axial MIP and coronal and sagittal 5 mm reformations. For radiation dose reduction, the following was used: automated exposure control, adjustment of mA and/or kV according to patient size. COMPARISON: Same-day radiograph FINDINGS: Image quality: Good Lungs and pleura:Right upper lobe masslike consolidation measures 7.6 x 7.5 cm on coronal image 23. The peripheral regions have hyperdensity, possibly related pleural calcifications. The central regions show cavitation. No drainable pleural effusion. Mediastinum, heart, and esophagus: Coronary calcifications. Borderline heart size overall. No pathologic lymph nodes in the mediastinum. There are prominent right hilar and right mediastinal lymph nodes that are indeterminate in this clinical setting. Chest wall and thyroid: Unremarkable Upper abdomen: Partially visualized, no gross abnormality. Suspected cyst in the right lobe. Subcentimeter lesions are too small to characterize. There may be mild left upper quadrant varices. Bones: No acute or suspicious osseous finding. Height loss of the L2 vertebral body, also described previously. IMPRESSION: Cavitary masslike consolidation in the right upper lobe, representing infection, malignancy, or both. Peripheral pleural calcifications are seen adjacent to the lesion. Prominent right hilar mediastinal lymph nodes are indeterminate in this clinical setting. Forms: PCP List Discharge Date/Time: 05/04/23 18:13
[2023-05-04] MEDS ORDERED: iohexoL-300 100 ML VIAL IVP ONE (16:15)
--- NOTE | 2023-05-04 17:13 | CT Report ---
PROCEDURE: CHEST W INDICATIONS: possible RUL mass on cxr CONTRAST: 100mL Omni 300 TECHNIQUE: After the administration of intravenous contrast, 1 mm axial images were acquired from the pulmonary apices through the posterior costophrenic angles. Axial 5 mm soft tissue kernel reconstructions were performed as well as 8 mm axial MIP and coronal and sagittal 5 mm reformations. For radiation dose reduction, the following was used: automated exposure control, adjustment of mA and/or kV according to patient size. COMPARISON: Same-day radiograph FINDINGS: Image quality: Good Lungs and pleura:Right upper lobe masslike consolidation measures 7.6 x 7.5 cm on coronal image 23. T he peripheral regions have hyperdensity, possibly related pleural calcifications. The central regions show cavitation. No drainable pleural effusion. Mediastinum, heart, and esophagus: Coronary calcifications. Borderline heart size overall. No patholo gic lymph nodes in the mediastinum. There are prominent right hilar and right mediastinal lymph nodes that are indeterminate in this clinical setting. Chest wall and thyroid: Unremarkable Upper abdomen: Partially visualized, no gross abnormality. Suspected cyst in the right lobe. Subcenti meter lesions are too small to characterize. There may be mild left upper quadrant varices. Bones: No acute or suspicious osseous finding. Height loss of the L2 vertebral body, also described p reviously. IMPRESSION: Cavitary masslike consolidation in the right upper lobe, representing infection, malignancy, or both. Peripheral pleural calcifications are seen adjacent to the lesion. Prominent right hilar mediastinal lymph nodes are indeterminate in this clinical setting. Reviewed by: Gonsalo Montero MD on 05/04/2023 5:11 PM PST Approved by: Gonsalo Montero MD on 05/04/2023 5:11 PM PST Station ID: [id number]
[2023-05-04 17:39] VITALS: BP 133/80; O2SAT 98
[2023-05-04] MEDS ORDERED: AMOX/CLAV 875 MG/125 MG TABLET PO STA (17:45)
== END 2023-05-04 18:13 | disposition home or self-care (01) ==
LOC: ED 12:13
DX: J85.1 Abscess of lung with pneumonia (principal); Z20.822 Contact with and (suspected) exposure to COVID-19; Z79.82 Long term (current) use of aspirin; Z79.899 Other long term (current) drug therapy
CPT/HCPCS: 36415; 71046; 71260; 80053; 83690; 85025; 87633; 99283; 99284; A9270; Q9967

== ENCOUNTER 2023-06-06 02:46 | Emergency (ER) | payer MEDICARE, OTHER ==
[2023-06-06 03:17] VITALS: O2SAT 97
--- NOTE | 2023-06-06 03:32 | ED Physician Documentation ---
PD HPI ABD PAIN - Stated complaint Stated Complaint: MALE - Chief complaint Chief Complaint: Abd Pain - History obtained from History obtained from: Patient - Additional information Additional information: HPI from patient. Patient c/o 3-4 days of LLQ pain, gradual onset without inciting event, but constant and steadily increasing in intensity. Pain is exacerbated with palpation, movement involving lower abdomen. Denies fever. Denies diarrhea, constipation. He has h/o diverticulosis. He was T+R from this ED last month for respiratory symptoms and was found , on CT chest, to have a large, right-sided, cavitary lung lesion that had features of both infectious etiology as well as possible tumor/malignancy. He was prescribed a long course of augmentin and followed up with pulmonology. Patient tells me that the pulmonogist extended the course of the same antibiotic (he says the rx from this ED was for at least 10 days of antibiotic, and his canal tender provided an rx for same antibiotic to last until late May (combined, this is at least one month of augmentin). He says the plan is to reperform the CT scan for comparative purposes, and will base whether or not to proceed to biopsy of the lung lesion on the follow-up study results. Review of Systems Constitutional: denies: Fever, Chills, Sweats Cardiac: reports: Reviewed and negative GI: reports: Abdominal Pain. denies: Nausea, Vomiting, Constipation, Diarrhea, Hematemesis, Bloody / black stool : denies: Dysuria, Frequency PD PAST MEDICAL HISTORY - Past Medical History Past Medical History: Yes Neuro: CVA, Seizure disorder GI: GERD, Pancreatitis - Past Surgical History Past Surgical History: Yes General: Hiatal hernia repair - Present Medications Home Medications: Ambulatory Orders Medication Instructions Recorded Confirmed Aspirin [Aspirin EC] 325 mg PO DAILY 03/12/22 05/04/23 Atorvastatin Calcium [Lipitor] 80 mg PO DAILY 03/12/22 05/04/23 Levetiracetam [Spritam] 1,000 mg PO DAILY 03/12/22 05/04/23 Lisinopril [Zestril] 5 ng PO DAILY 03/12/22 05/04/23 Tamsulosin [Flomax] 0.4 mg PO DAILY 03/12/22 05/04/23 Amox/Clav 875/125 [Augmentin] 1 tab PO Q12H #42 tablet 05/04/23 - Allergies Allergies/Adverse Reactions: Allergies Allergy/AdvReac Type Severity Reaction Status Date / Time No Known Drug Allergies Allergy Verified 05/04/23 12:23 - Social History Does the pt smoke?: No Smoking Status: Never smoker Does the pt drink ETOH?: Yes Does the pt have substance abuse?: No - Immunizations Immunizations are current?: Yes - POLST Patient has POLST: No PD ED PE NORMAL - Vitals Vital signs reviewed: Yes - General General: Alert and oriented X 3, No acute distress, Well developed/nourished - Cardiac Cardiac: RRR, No murmur - Respiratory Respiratory: No respiratory distress, Clear bilaterally - Abdomen Abdomen: Soft, Non distended - Back Back: No CVA TTP - Derm Derm: Normal color, Warm and dry - Extremities Extremities: No edema PD ED PE EXPANDED - Abdomen Abdomen: Tender to palpation, LLQ. No: Rebound, Guarding Results - Vitals Vitals: Vital Signs - 24 hr 06/06/23 06:00 Heart Rate 61 Respiratory 16 Rate O2 Saturation 97 Oxygen O2 Source Room air - Labs Labs: Laboratory Tests 06/06/23 06/06/23 04:16 04:16 WBC 9.5 RBC 3.79 L Hgb 11.7 L Hct 37.5 L MCV 98.9 H MCH 30.9 MCHC 31.2 L RDW 15.9 H Plt Count 124 L MPV 9.3 Neut # (Auto) 7.2 H Lymph # (Auto) 1.6 [place] # (Auto) 0.6 Eos # (Auto) 0.0 Baso # (Auto) 0.0 Absolute Nucleated RBC 0.00 Nucleated RBC % 0.0 Sodium 134 L Potassium 3.9 Chloride 100 L Carbon Dioxide 31 Anion Gap 3.0 L BUN 18 Creatinine 0.9 Estimated GFR (MDRD) 80 L Glucose 93 Calcium 8.9 Total Bilirubin 0.6 AST 18 ALT 18 Alkaline Phosphatase 102 Total Protein 6.9 Albumin 3.2 Globulin 3.7 Albumin/Globulin Ratio 0.9 L Lipase 13 - Rads (name of study) CT A/P with IV contrast Relevant Findings:: Prelim report reviewed, See rad report PD Medical Decision Making - ED course Complexity details: reviewed results, re-evaluated patient, considered differential, d/w patient ED course: Normal WBC and he is afebrile. He is in NAD and declines analgesics (both initially as well as on follow up after tests resulted). Hgb trivially below normal range (11.7). No concerning nor diagnostic findings on ER abdominal panel (minimal hyponatremia, 134). CT A/P demonstrates uncomplicated LLQ diverticulitis. Test results d/w patient including CT, along with diagnosis, treatment options, and prognosis. In discussing treatment options, I explained the role of antibiotics, which are typically reserved for patients with more advanced cases of diverticulitis such as those that require hospital admission and certainly if any evidence of perforation or microperforation. I discussed with him the sudden and sharp reversal in regards to antibiotics for mild, outpatient cases of diverticulitis. He strongly prefers to not take any more antibiotics than he is already on. As it is, he is taking augmentin , which is one of the antibiotics of choice for diverticulitis. While his diverticulitis developed while he has been taking this antibiotic (and thus I would not expect that it will have an effect in regards to hastening improvement of the illness), it should provide some degree of appropriate antibiosis should he progress to microperforation. I emphasized the need to return to the ED immediately if symptoms worsen in any way or if new/concerning signs/symptoms develop (such as fever, blood in stool, severe abdominal pain, distention). Otherwise, given that the literature no longer recommends routine prescription of antibiotics for cases such as this, and patient's preference to avoid new or more antibiotics if they are not definitively recommended for his diverticulitis, no prescription provided nor medications given in ED. He is to continue his augmentin, follow up with PMD next available appointment, and return according to the return precautions we carefully reviewed Departure - Departure Disposition: 01 Home, Self Care Clinical Impression: Diverticulitis of gastrointestinal tract Condition: Good Instructions: ED Diverticulitis Follow-Up: [facility] [Primary Care Provider] - (7-10 days) Comments: The CT scan of your abdomen and pelvis shows that you have diverticulitis; included in this discharge pack are instructions regarding the diagnosis and treatment of diverticulitis. As we discussed, antibiotics used to be routinely prescribed for this diagnosis but the medical literature no longer recommends antibiotics for most patient with mild diverticulitis not requiring hospital admission. Furthermore, you are already on one of the antibiotics of choice for diverticulitis (Augmentin). The symptoms should resolve over the next several days, but might take up to a week. If your symptoms worsen in any way, you should return to the emergency department for reevaluation. Otherwise, follow- up with your primary care provider in 7 to 10 days if the symptoms have not resolved. Forms: PCP List Discharge Date/Time: 06/06/23 07:29
[2023-06-06 04:25] LABS: BASOPHILS % (AUTO) 0.4 %; EOSINOPHILS % (AUTO) 0.1 %; HCT - HEMATOCRIT 37.5 % (42.0-52.0); HGB - HEMOGLOBIN 11.7 g/dL (14.0-18.0); LYMPHOCYTES # (AUTO) 1.6 10^3/uL (1.5-3.5); LYMPHOCYTES % (AUTO) 16.5 %; MEAN CORPUSCULAR HEMOGLOBIN 30.9 pg (27.0-31.0); MEAN CORPUSCULAR HGB CONC 31.2 g/dL (32.0-36.0); MEAN CORPUSCULAR VOLUME 98.9 fL (80.0-94.0); MEAN PLATELET VOLUME 9.3 fL (7.4-11.4); MONOCYTES # (AUTO) 0.6 10^3/uL (0.0-1.0); MONOCYTES % (AUTO) 6.4 %; NEUTROPHILS # (AUTO) 7.2 10^3/uL (1.5-6.6); NEUTROPHILS % (AUTO) 76.4 %; PLT - PLATELET COUNT 124 10^3/uL (130-450); RED BLOOD COUNT 3.79 10^6/uL (4.70-6.10); RED CELL DISTRIBUTION WIDTH 15.9 % (12.0-15.0); WHITE BLOOD COUNT 9.5 x10^3/uL (4.8-10.8)
[2023-06-06 04:29] VITALS: BP 129/70
[2023-06-06 04:38] LABS: ALBUMIN 3.2 g/dL (3.2-5.5); ALBUMIN/GLOBULIN RATIO 0.9 (1.0-2.2); BILIRUBIN,TOTAL 0.6 mg/dL (0.2-1.0); CALCIUM 8.9 mg/dL (8.5-10.3); CREATININE 0.9 mg/dL (0.6-1.3); POTASSIUM 3.9 mmol/L (3.5-4.5); TOTAL PROTEIN 6.9 g/dL (6.4-8.9)
[2023-06-06] MEDS ORDERED: iohexoL-300 100 ML VIAL IVP ONE (05:58)
--- NOTE | 2023-06-06 08:25 | CT Report ---
PROCEDURE: ABDOMEN/PELVIS W INDICATIONS: LLQ pain, TTP CONTRAST: Omni 300 100ml TECHNIQUE: After the administration of IV contrast, 5 mm thick sections acquired from the diaphragms to the symp hysis. 5 mm thick coronal and sagittal reformats were acquired. For radiation dose reduction, the f ollowing was used: automated exposure control, adjustment of mA and/or kV according to patient size. COMPARISON: CT of abdomen and pelvis, 04/08/2023. CT IVP, 11/03/2022. CT chest with, 05/04/2023. FINDINGS: Image quality: Excellent. Lung bases and heart: There are several nodules or nodular infiltrates in the posterior medial aspect of the right lower lobe, measuring up to 1.2 cm, new since the last chest CT exam dated 05/04/2023. M ild pectus excavatum. Liver: Normal size. No solid mass. There is a couple of small hypodensities in liver, one in the infe rior right hepatic lobe and one in the anterior left hepatic lobe, most likely small hepatic cysts. Gallbladder and biliary tree: Normal gallbladder. No biliary dilation. Spleen: No splenomegaly. Pancreas: No pancreatic ductal dilation. Adrenals: No adrenal nodule. Kidneys and ureters: No hydronephrosis. No renal cystic lesion which requires follow up. No solid mas s. There is a 1.4 cm low-density cortical nodule in the superior pole of the right kidney, most likel y a cyst. Bowel and peritoneum: No bowel distension. No pathologic free fluid. Diverticulosis. There is focal t hickening in distal descending/proximal sigmoid colon suspicious for acute diverticulitis. There is l arge amount stool in colon. Lymph nodes: No central or retroperitoneal adenopathy. Vessels: No infrarenal aortic aneurysm. PELVIS Reproductive organs: Unremarkable. Bladder: No abnormal wall thickening, accounting for underdistension. Pelvic lymph nodes: No pelvic adenopathy by size criteria. Bones: No aggressive osseous abnormality. Moderate chronic compression fracture L2. Severe degenerati ve changes in lumbar spine. Other: There is a small fat-containing umbilical hernia and a small fat-containing right inguinal her unique. IMPRESSION: 1. Diverticulosis. There is mild focal thickening in the distal descending/proximal sigmoid colon, maxwell spicious for acute diverticulitis. 2. There are several nodules in the right lower lobe, new since the last chest CT. Recommend follow-u p to resolution. No significant discrepancy with the preliminary interpretation. Reviewed by: Carmine Townsend MD on 06/06/2023 8:23 AM PST Approved by: Carmine Townsend MD on 06/06/2023 8:23 AM PST Station ID: [id number]
== END 2023-06-06 07:29 | disposition home or self-care (01) ==
LOC: ED 02:46
DX: K57.92 Diverticulitis of intestine, part unspecified, without perforation or abscess without bleeding (principal); Z86.73 Personal history of transient ischemic attack (TIA), and cerebral infarction without residual deficits; Z79.82 Long term (current) use of aspirin; Z79.899 Other long term (current) drug therapy
CPT/HCPCS: 36415; 74177; 80053; 83690; 85025; 99283; 99284; Q9967

== ENCOUNTER 2023-06-29 10:50 | Outpatient (CLI) | payer MEDICARE, OTHER ==
--- NOTE | 2023-06-29 13:48 | CT Report ---
PROCEDURE: Chest WO INDICATIONS: LUNG NODULE TECHNIQUE: Noncontrast 1mm axial images acquired from the pulmonary apex to the posterior costophrenic angles in the supine end-inspiration, supine end-expiration, and prone end-inspiration positions. Axial 5 mm soft tissue kernel reconstructions were performed as well as 8 mm axial MIP and coronal and sagittal 5 mm reformations. For radiation dose reduction, the following was used: automated exposure control , adjustment of mA and/or kV according to patient size. COMPARISON: 05/04/2023 FINDINGS: Image quality: Diagnostic. Lungs: Previously described right upper lobe masslike consolidation measures approximately 4.6 x 2.4 cm in a xial cross sectional dimension (60/series 3) and approximately 5.8 cm in craniocaudal dimension (24/s eries 7). Previously it measured 7.6 x 7.5 cm in maximum dimension. Overall, it appears smaller and l ess prominent. Persistent central/peripheral cavitation. There is associated bronchiectasis which is relatively new. This mass/consolidation abuts a segment of pleural calcifications as before. No organ ized fluid collection seen. No septal thickening or nodularity. Mild residual groundglass opacities i n the more inferior portions of this consolidation abutting the major fissure. This was previously in an area of consolidation in the more prominent groundglass opacities. No new suspicious pulmonary no dules or mass lesions. Right upper lobe perihilar airway thickening has also significantly decreased. Pleura: No pleural effusions or pneumothorax. Redemonstration of pleural calcifications involving t he bilateral lung apices. Mediastinum: Heart size is normal. No pericardial effusion. Multivessel coronary artery calcification s. No large vessel abnormality. No mediastinal adenopathy by size criteria. Chest wall and lower neck: Thyroid is unremarkable. No axillary or supraclavicular adenopathy by size . Bones: No aggressive osseous abnormality. No acute fracture. No acute compression fracture. Stable ch ronic compression deformity of the L2 vertebral body. Upper Abdomen: Splenic calcifications. Otherwise unremarkable. IMPRESSION: 1. Persistent irregular masslike consolidation in the right upper lobe has decreased significantly in size and conspicuity now measuring 4.6 x 5.8 cm in maximum dimension versus 7.6 x 7.5 cm. There is a n interval decrease in associated perihilar airway thickening and new bronchiectasis which likely rep resented sequela of an infectious process. Persistent central cavitation. No evidence for abscess for mation. Underlying malignancy not completely excluded but thought less likely at this time. Recommend continued clinical and imaging surveillance. Follow-up CT in 3-6 months is recommended. 2. Pleural calcifications which may be related to prior asbestos exposure. Reviewed by: Jaxson Sanchez MD on 06/29/2023 1:46 PM PST Approved by: Jaxson Sanchez MD on 06/29/2023 1:46 PM PST Station ID: [id number]
== END 2023-06-29 10:51 | disposition home or self-care (01) ==
LOC: DI 10:50
PROVIDERS: ATTEND Internal Medicine Pulmonary Disease
DX: R91.8 Other nonspecific abnormal finding of lung field (principal); J47.9 Bronchiectasis, uncomplicated; J94.8 Other specified pleural conditions

== ENCOUNTER 2023-07-02 08:00 | Outpatient (CLI) | payer MEDICARE, OTHER | END 2023-07-02 23:59 | disposition home or self-care (01) | LOC: LAB.R 08:00 | PROVIDERS: ATTEND Internal Medicine Pulmonary Disease | DX: R91.8 Other nonspecific abnormal finding of lung field (principal) | CPT/HCPCS: 81599; 87015; 87116; 87206 ==

== ENCOUNTER 2023-11-06 15:46 | Outpatient (CLI) | payer MEDICARE, OTHER ==
--- NOTE | 2023-11-06 16:45 | CT Report ---
PROCEDURE: Lumbar Spine WO INDICATIONS: RADICULOPATHY TECHNIQUE: Noncontrast 3 mm thick sections acquired from the T12 level to the sacrum. Sagittal and coronal refo rmats were constructed. For radiation dose reduction, the following was used: automated exposure co ntrol, adjustment of mA and/or kV according to patient size. COMPARISON: CT abdomen pelvis on 04/08/2023. FINDINGS: Image quality: Excellent. Mild levoscoliosis of the lumbar spine, centered at L2. Straightening of the lumbar spine. Grade 1 an terolisthesis of L1-L2. Moderate anterior compression deformity of L2, unchanged from prior exam, chr onic. 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 Multilevel disc bulge and disc desiccation. The following axial levels are detailed below: T12-L1: No central canal stenosis. No right neuroforaminal stenosis. No left neuroforaminal stenosis. L1-L2: Mild bilateral facet arthropathy. Mild disc bulge. No central canal stenosis. No right neurofo raminal stenosis. No left neuroforaminal stenosis. L2-L3: Disc bulge. Mild bilateral facet arthropathy. No central canal stenosis. No right neuroforamin al stenosis. No left neuroforaminal stenosis. L3-L4: Mild disc bulge. Mild bilateral facet arthropathy. Mild central canal stenosis. Mild right philip roforaminal stenosis. Mild left neuroforaminal stenosis. L4-L5: Disc bulge. Mild bilateral facet arthropathy. No central canal stenosis. Mild right neuroforam inal stenosis. Mild to moderate left neuroforaminal stenosis. L5-S1: Disc bulge. Mild bilateral facet arthropathy. No central canal stenosis. Moderate right neurof oraminal stenosis. Severe left neuroforaminal stenosis. Visualized sacrum and pelvis: Visualized sacrum is intact. Mild degenerative changes of the right sac roiliac joint. Severe sigmoid colon diverticulosis. Moderate degenerative changes of the abdominal aorta. IMPRESSION: 1.Mild levoscoliosis of the lumbar spine. 2.Moderate anterior compression deformity of L2, chronic. 3.Multilevel degenerative change of lumbar spine, most pronounced at L5-S1, where there is moderate r ight and severe left neuroforaminal stenosis. Reviewed by: Mckayla Richey MD on 11/06/2023 4:44 PM PDT Approved by: Mckayla Richey MD on 11/06/2023 4:44 PM PDT Station ID: [id number]
--- NOTE | 2023-11-06 16:59 | CT Report ---
PROCEDURE: Thoracic Spine WO INDICATIONS: RADICULOPATHY TECHNIQUE: Noncontrast 3 mm thick sections acquired through the region of interest in the thoracic spine. Sagit quinton and coronal reformats were then constructed. For radiation dose reduction, the following was used : automated exposure control, adjustment of mA and/or kV according to patient size. COMPARISON: None. FINDINGS: Image quality: Excellent. Mild levoscoliosis at the cervicothoracic junction. Straightening of the thoracic spine. Vertebral kyra dy heights are well-maintained. Multilevel, mild degenerative disc disease of the thoracic spine. No significant osseous central canal stenosis of the thoracic spine. Right neuroforaminal stenosis: Mild at T5-6, T6-7, T9-10. Left neuroforaminal stenosis: Mild at T5-6, T6-7, T9-10. Other soft tissue findings: Scarring in bilateral lung apex with associated calcification, partially visualized. Mild calcification of the thoracic aorta. Moderate calcification of the abdominal aorta. 4.0 cm ascending thoracic aortic aneurysm, grossly unchanged from CT chest on 06/29/2023. IMPRESSION: 1.Mild levoscoliosis at the cervicothoracic junction. 2.Mild multilevel bilateral neuroforaminal stenosis of the thoracic spine. Recommend further evaluati on with thoracic spine MRI. 3.4.0 cm ascending thoracic aortic aneurysm. Reviewed by: Mckayla Richey MD on 11/06/2023 4:58 PM PDT Approved by: Mckayla Richey MD on 11/06/2023 4:58 PM PDT Station ID: [id number]
== END 2023-11-06 15:47 | disposition home or self-care (01) ==
LOC: DI 15:46
PROVIDERS: ATTEND Nurse Practitioner Family
DX: M47.814 Spondylosis without myelopathy or radiculopathy, thoracic region (principal); M51.34 Other intervertebral disc degeneration, thoracic region; M41.9 Scoliosis, unspecified; I71.21 Aneurysm of the ascending aorta, without rupture; M48.04 Spinal stenosis, thoracic region

== ENCOUNTER 2023-11-08 13:43 | Emergency (ER) | payer MEDICARE, OTHER ==
[2023-11-08 14:10] LABS: BASOPHILS # (AUTO) 0.1 10^3/uL (0.0-0.1); BASOPHILS % (AUTO) 0.9 %; EOSINOPHILS # (AUTO) 0.3 10^3/uL (0.0-0.7); EOSINOPHILS % (AUTO) 4.9 %; HCT - HEMATOCRIT 40.8 % (42.0-52.0); HGB - HEMOGLOBIN 13.1 g/dL (14.0-18.0); LYMPHOCYTES # (AUTO) 1.8 10^3/uL (1.5-3.5); MEAN CORPUSCULAR HEMOGLOBIN 32.2 pg (27.0-31.0); MEAN CORPUSCULAR HGB CONC 32.1 g/dL (32.0-36.0); MEAN CORPUSCULAR VOLUME 100.2 fL (80.0-94.0); MEAN PLATELET VOLUME 9.9 fL (7.4-11.4); MONOCYTES # (AUTO) 0.4 10^3/uL (0.0-1.0); NEUTROPHILS # (AUTO) 2.9 10^3/uL (1.5-6.6); NEUTROPHILS % (AUTO) 53.8 %; PLT - PLATELET COUNT 116 10^3/uL (130-450); RED BLOOD COUNT 4.07 10^6/uL (4.70-6.10); WHITE BLOOD COUNT 5.5 x10^3/uL (4.8-10.8)
[2023-11-08 14:13] VITALS: BP 124/52; O2SAT 98
[2023-11-08 14:30] LABS: ALBUMIN 3.8 g/dL (3.2-5.5); ALBUMIN/GLOBULIN RATIO 1.2 (1.0-2.2); BILIRUBIN,TOTAL 0.7 mg/dL (0.2-1.0); CALCIUM 9.3 mg/dL (8.5-10.3); POTASSIUM 4.5 mmol/L (3.5-4.5)
--- NOTE | 2023-11-08 14:58 | ED Physician Documentation ---
PD HPI ABD PAIN - Stated complaint Stated Complaint: GI - Chief complaint Chief Complaint: Abd Pain - History obtained from History obtained from: Patient - Additional information Additional information: He had a hernia repair with mesh 30 years ago the [facility]. Over the last couple of days has noted a right inguinal hernia. It is not particularly painful. Note made that he had a CT done here in May for diverticulitis and the inguinal hernia was noted as an incidental finding at that time. PD PAST MEDICAL HISTORY - Past Medical History Past Medical History: Yes Neuro: CVA, Seizure disorder GI: GERD, Pancreatitis - Past Surgical History Past Surgical History: Yes General: Hiatal hernia repair - Present Medications Home Medications: Ambulatory Orders Medication Instructions Recorded Confirmed Aspirin [Aspirin EC] 325 mg PO DAILY 03/12/22 05/04/23 Atorvastatin Calcium [Lipitor] 80 mg PO DAILY 03/12/22 05/04/23 Levetiracetam [Spritam] 1,000 mg PO DAILY 03/12/22 05/04/23 Lisinopril [Zestril] 5 ng PO DAILY 03/12/22 05/04/23 Tamsulosin [Flomax] 0.4 mg PO DAILY 03/12/22 05/04/23 Amox/Clav 875/125 [Augmentin] 1 tab PO Q12H #42 tablet 05/04/23 - Allergies Allergies/Adverse Reactions: Allergies Allergy/AdvReac Type Severity Reaction Status Date / Time No Known Drug Allergies Allergy Verified 11/08/23 13:58 - Social History Does the pt smoke?: No Smoking Status: Never smoker Does the pt drink ETOH?: Yes Does the pt have substance abuse?: No - Immunizations Immunizations are current?: Yes - POLST Patient has POLST: No PD ED PE NORMAL - Vitals Vital signs reviewed: Yes - General General: Alert and oriented X 3, No acute distress - Abdomen Abdomen: Normal bowel sounds, Non tender, Other (Small nontender and easily reducible right inguinal hernia. He does have an umbilical hernia as well that is not bothering him.) - Neuro Neuro: Alert and oriented X 3 Results - Vitals Vitals: Vital Signs - 24 hr 11/08/23 11/08/23 13:54 15:05 Temperature 36.4 C L 36.4 C L Heart Rate 63 63 Respiratory 20 20 Rate Blood Pressure 124/52 L 124/52 L O2 Saturation 98 98 Oxygen O2 Source Room air - Labs Labs: Laboratory Tests 11/08/23 11/08/23 14:05 14:05 WBC 5.5 RBC 4.07 L Hgb 13.1 L Hct 40.8 L MCV 100.2 H MCH 32.2 H MCHC 32.1 RDW 14.0 Plt Count 116 L MPV 9.9 Neut # (Auto) 2.9 Lymph # (Auto) 1.8 [place] # (Auto) 0.4 Eos # (Auto) 0.3 Baso # (Auto) 0.1 Absolute Nucleated RBC 0.00 Nucleated RBC % 0.0 Sodium 135 Potassium 4.5 Chloride 101 Carbon Dioxide 29 Anion Gap 5.0 L BUN 21 H Creatinine 1.0 Estimated GFR (MDRD) 71 L Glucose 76 Calcium 9.3 Total Bilirubin 0.7 AST 19 ALT 15 Alkaline Phosphatase 75 Total Protein 7.0 Albumin 3.8 Globulin 3.2 Albumin/Globulin Ratio 1.2 Lipase 30 PD Medical Decision Making - ED course ED course: He has a right inguinal hernia. No evidence of obstruction, incarceration, or significant pain. Subacute to chronic. Surgery referral given. Triage blood work was ordered and notable for mild macrocytic anemia on CBC and unremarkable CMP. Departure - Departure Disposition: 01 Home, Self Care Clinical Impression: Inguinal hernia, right Condition: Good Record reviewed to determine appropriate education?: Yes Instructions: ED Hernia Inguinal Follow-Up: [facility] [Provider Group] Comments: I cannot see on your prior CT which side your meshes on. Either way now that the hernia is symptomatic it is reasonable to follow-up with a general surgeon for evaluation for repair. Forms: PCP List Discharge Date/Time: 11/08/23 15:04
== END 2023-11-08 15:04 | disposition home or self-care (01) ==
LOC: ED 13:43
DX: K40.90 Unilateral inguinal hernia, without obstruction or gangrene, not specified as recurrent (principal); K42.9 Umbilical hernia without obstruction or gangrene; D53.9 Nutritional anemia, unspecified; Z98.890 Other specified postprocedural states
CPT/HCPCS: 36415; 80053; 83690; 85025; 99283

== ENCOUNTER 2023-11-23 15:28 | Emergency (ER) | payer MEDICARE, OTHER ==
[2023-11-23 16:21] LABS: BASOPHILS # (AUTO) 0.1 10^3/uL (0.0-0.1); BASOPHILS % (AUTO) 0.8 %; EOSINOPHILS # (AUTO) 0.2 10^3/uL (0.0-0.7); EOSINOPHILS % (AUTO) 2.9 %; HCT - HEMATOCRIT 43.1 % (42.0-52.0); LYMPHOCYTES # (AUTO) 1.8 10^3/uL (1.5-3.5); LYMPHOCYTES % (AUTO) 30.6 %; MEAN CORPUSCULAR HEMOGLOBIN 32.6 pg (27.0-31.0); MEAN CORPUSCULAR HGB CONC 32.5 g/dL (32.0-36.0); MEAN CORPUSCULAR VOLUME 100.5 fL (80.0-94.0); MEAN PLATELET VOLUME 10.2 fL (7.4-11.4); MONOCYTES # (AUTO) 0.5 10^3/uL (0.0-1.0); MONOCYTES % (AUTO) 7.6 %; NEUTROPHILS # (AUTO) 3.4 10^3/uL (1.5-6.6); NEUTROPHILS % (AUTO) 57.9 %; PLT - PLATELET COUNT 111 10^3/uL (130-450); RED BLOOD COUNT 4.29 10^6/uL (4.70-6.10); WHITE BLOOD COUNT 5.9 x10^3/uL (4.8-10.8)
--- NOTE | 2023-11-23 16:23 | ED Physician Documentation ---
PD HPI ABD PAIN - Stated complaint Stated Complaint: HERNIA - Chief complaint Chief Complaint: Abd Pain - History obtained from History obtained from: Patient - Additional information Additional information: This is a very nice and a quite healthy at baseline 87-year-old gentleman who presents stating that he has a right inguinal hernia and was concerned that it may be getting slightly worse. He went to the clinic today reporting some increased achiness in the right groin and was directed to the ER for possible imaging. The patient states he knows that he has an inguinal hernia and has noted slight increase in discomfort recently. It is not somewhat painful as it is that he is aware that there is something there and he is concerned that it will become strangulated as it impacts his life because he is not able to do some of the things that he wants to do as he is quite active. He has not had a sudden acute change in pain, he states that when it has become swollen he has been able to push on it and it gets better, he has not required any pain medicine for this issue. He denies any fever or chills, no bowel or bladder changes, no dysuria urgency or frequency. Review of Systems Constitutional: reports: Reviewed and negative Cardiac: reports: Reviewed and negative Respiratory: reports: Reviewed and negative GI: reports: Abdominal Pain : reports: Reviewed and negative Skin: reports: Reviewed and negative Musculoskeletal: reports: Reviewed and negative PD PAST MEDICAL HISTORY - Past Medical History Past Medical History: Yes Neuro: CVA, Seizure disorder GI: GERD, Pancreatitis, Other Other Past Medical History: R inguinal hernia - Past Surgical History Past Surgical History: Yes General: Hiatal hernia repair - Present Medications Home Medications: Ambulatory Orders Medication Instructions Recorded Confirmed Aspirin [Aspirin EC] 325 mg PO DAILY 03/12/22 05/04/23 Atorvastatin Calcium [Lipitor] 80 mg PO DAILY 03/12/22 05/04/23 Levetiracetam [Spritam] 1,000 mg PO DAILY 03/12/22 05/04/23 Lisinopril [Zestril] 5 ng PO DAILY 03/12/22 05/04/23 Tamsulosin [Flomax] 0.4 mg PO DAILY 03/12/22 05/04/23 Amox/Clav 875/125 [Augmentin] 1 tab PO Q12H #42 tablet 05/04/23 - Allergies Allergies/Adverse Reactions: Allergies Allergy/AdvReac Type Severity Reaction Status Date / Time No Known Drug Allergies Allergy Verified 11/08/23 13:58 - Social History Does the pt smoke?: No Smoking Status: Never smoker Does the pt drink ETOH?: Yes Does the pt have substance abuse?: No - Immunizations Immunizations are current?: Yes - POLST Patient has POLST: No PD ED PE NORMAL - Vitals Vital signs reviewed: Yes - General General: Alert and oriented X 3, No acute distress, Well developed/nourished - HEENT HEENT: Atraumatic, Moist mucous membranes - Cardiac Cardiac: RRR, No murmur - Respiratory Respiratory: No respiratory distress, Clear bilaterally - Abdomen Abdomen: Normal bowel sounds, Soft, Non distended, Other (And there is a palpable right inguinal hernia that is reducible, minimally tender with palpation. No other areas of abdominal pain) - Derm Derm: Normal color, Warm and dry, No rash - Extremities Extremities: No deformity, No tenderness to palpate, Normal ROM s pain, No edema, No calf tenderness / cord - Neuro Neuro: Alert and oriented X 3 Eye Opening: Spontaneous Motor: Obeys Commands Verbal: Oriented GCS Score: 15 Results - Vitals Vitals: Vital Signs - 24 hr 11/23/23 11/23/23 15:32 17:59 Temperature 36.7 C Heart Rate 65 68 Respiratory 18 16 Rate Blood Pressure 145/63 H 126/61 O2 Saturation 99 100 Oxygen O2 Source Room air - Labs Labs: Laboratory Tests 11/23/23 11/23/23 11/23/23 16:15 16:15 16:15 WBC 5.9 RBC 4.29 L Hgb 14.0 Hct 43.1 MCV 100.5 H MCH 32.6 H MCHC 32.5 RDW 14.0 Plt Count 111 L MPV 10.2 Neut # (Auto) 3.4 Lymph # (Auto) 1.8 Eddy # (Auto) 0.5 Eos # (Auto) 0.2 Baso # (Auto) 0.1 Absolute Nucleated RBC 0.00 Nucleated RBC % 0.0 Sodium 137 Potassium 4.4 Chloride 104 Carbon Dioxide 27 Anion Gap 6.0 BUN 21 H Creatinine 1.0 Estimated GFR (MDRD) 71 L Glucose 87 Lactic Acid 1.0 Calcium 9.0 Total Bilirubin 0.6 AST 20 ALT 15 Alkaline Phosphatase 82 Total Protein 6.7 Albumin 3.9 Globulin 2.8 Albumin/Globulin Ratio 1.4 Lipase 17 - Rads (name of study) No standard instances Relevant Findings:: Final report received PD Medical Decision Making - ED course Complexity details: reviewed old records, reviewed results, re-evaluated patient, considered differential, d/w patient ED course: 87-year-old male presented with known right inguinal hernia, he was concerned that it may have gotten worse. He did not have any acute change in pain, and on exam there is no evidence of a incarcerated hernia. He is well-appearing otherwise, afebrile and nontoxic and is labs are reassuring. I obtained an ultrasound of the area that does show a right inguinal hernia that is fat- containing and reducible. I reassured the patient that he does not need any emergency intervention or CT scan at this time but to follow-up with general surgery to discuss elective repair. We reviewed supportive measures as well as return precautions. Departure - Departure Disposition: 01 Home, Self Care Clinical Impression: Inguinal hernia Qualifiers: Obstruction and gangrene presence: without obstruction or gangrene Laterality: unilateral Recurrence: not specified as recurrent Qualified Code(s): K40.90 - Unilateral inguinal hernia, without obstruction or gangrene, not specified as recurrent Condition: Good Instructions: ED Hernia Inguinal Follow-Up: Mitul Alberts MD [Provider Admit Priv/Credential] - Comments: Please call the general surgery office to schedule an appointment for follow-up of your inguinal hernia. At this point you do not need emergency surgery but I think given how active you are you may benefit from intervention though this needs to be discussed further with the surgeon. In the meantime, avoid squatting or lifting, and you can use a cool compress on the area ibuprofen or Tylenol as needed for pain. If you have a sudden increase in pain or bulging that does not go down when you press on it, please seek emergency care. Forms: PCP List
[2023-11-23 16:39] LABS: ALBUMIN 3.9 g/dL (3.2-5.5); ALBUMIN/GLOBULIN RATIO 1.4 (1.0-2.2); BILIRUBIN,TOTAL 0.6 mg/dL (0.2-1.0); POTASSIUM 4.4 mmol/L (3.5-4.5); TOTAL PROTEIN 6.7 g/dL (6.4-8.9)
[2023-11-23 19:53] VITALS: BP 128/59; O2SAT 100
--- NOTE | 2023-11-23 20:09 | Ultrasound Report ---
PROCEDURE: Pelvic Limited INDICATIONS: right groin hernia pain TECHNIQUE: Real-time transabdominal scanning was performed of the right inguinal region, with image documentatio n. COMPARISON: CT abdomen and pelvis 06/06/2023. FINDINGS: Right inguinal hernia containing fat. The hernia is reducible. The hernia that measures 1.7 cm. The h erniated fat measures approximately 2.5 x 1.8 cm. Hernia increases with Valsalva. IMPRESSION: Small fat-containing right inguinal hernia. Reviewed by: Abel Hensley MD on 11/23/2023 8:08 PM PDT Approved by: Abel Hensley MD on 11/23/2023 8:08 PM PDT Station ID: [id number]
== END 2023-11-23 18:50 | disposition home or self-care (01) ==
LOC: ED 15:28
DX: K40.90 Unilateral inguinal hernia, without obstruction or gangrene, not specified as recurrent (principal); Z79.82 Long term (current) use of aspirin; Z79.899 Other long term (current) drug therapy
CPT/HCPCS: 36415; 80053; 83605; 83690; 85025; 99283; 99284

== ENCOUNTER 2024-03-07 10:26 | Day surgery (SDC) | payer MEDICARE, OTHER ==
[2024-03-07] MEDS ORDERED: ceFAZolin 2 GM VIAL ONE (10:32)
[2024-03-07] MEDS: LACTATED RINGERS 1,000 ML IV ONE ×2 (10:35→14:00)
[2024-03-07] MEDS ORDERED: NALOXONE 0.4 MG/ML VIAL IVP PRN (11:28)
[2024-03-07] MEDS ORDERED: ATROPINE ABBOJECT 1 MG/10 ML SYRINGE IVP PRN (11:28)
[2024-03-07] MEDS ORDERED: METOCLOPRAMIDE 10 MG/2 ML VIAL IVP PRN (11:28)
[2024-03-07] MEDS ORDERED: HYDROmorphone 0.5 MG/0.5 ML SYRINGE IVP PRN (11:28)
[2024-03-07] MEDS ORDERED: ONDANSETRON 4 MG/2 ML VIAL IVP PRN (11:28)
[2024-03-07] MEDS ORDERED: ePHEDrine 50 MG/ML VIAL IVP PRN (11:28)
[2024-03-07] MEDS ORDERED: MORPHINE 2 MG/ML CARPUJECT IVP PRN (11:28)
[2024-03-07] MEDS ORDERED: fentaNYL 100 MCG/2 ML VIAL IVP PRN (11:28)
--- NOTE | 2024-03-07 11:28 | ANESTHESIA ---
Pre-Anesthesia VS, & Labs - Diagnosis R inguinal hernia - Procedure R inguinal hernia repair with mesh Vital Signs: Temp Pulse Resp BP Pulse Ox O2 Flow Rate 36.3 C L 57 L 16 118/61 100 03/07/24 10:57 03/07/24 10:57 03/07/24 10:57 03/07/24 10:57 03/07/24 10:57 Height: 6 ft Weight (kg): 71.4 kg Body Mass Index: 21.3 BMI Classification: Normal - NPO >8 hours - Lab Results Lab results reviewed: Yes Home Medications and Allergies Aspirin [Aspirin EC] 325 mg PO DAILY 03/12/22 Atorvastatin Calcium [Lipitor] 80 mg PO DAILY 03/12/22 Levetiracetam [Spritam] 1,000 mg PO DAILY 03/12/22 Lisinopril [Zestril] 5 mg PO DAILY 03/12/22 Tamsulosin [Flomax] 0.4 mg PO DAILY 03/12/22 Allergies/Adverse Reactions: Allergies Allergy/AdvReac Type Severity Reaction Status Date / Time No Known Drug Allergies Allergy Verified 11/08/23 13:58 Anes History & Medical History - Medical History Cardiovascular: reports: Hypertension, High cholesterol Pulmonary: reports: None Gastrointestinal: reports: GERD, Hiatal hernia Urinary: reports: Benign prostate hypertrophy, Kidney stones Neuro: reports: CVA, Seizure disorder Musculoskeletal: reports: None Endocrine/Autoimmune: reports: None Skin: reports: None Smoking Status: Never smoker - Surgical History General: reports: Colonoscopy, EGD Eyes Ears Nose Throat (EENT): reports: Tonsil/Adenoidectomy Urologic: Exam General: Alert, Oriented x3, Cooperative Dental: WNL, Other (temp crown at top left) Mouth Openin Fingerbreadth Neck Mobility: Normal Mallampati classification: II Thyromental Distance: 4-6 cm Respiratory: Lungs clear, Normal breath sounds, No respiratory distress Cardiovascular: Regular rate Neurological: Normal speech Mental/Cognitive Status: Alert/Oriented X3, Normal for patient Plan Anesthesia Type: Total IV Consent for Procedure(s) Verified and Reviewed: Yes Code Status: Attempt Resuscitation ASA classification: 2-Mild systemic disease Is this case an emergency?: No
[2024-03-07] MEDS ORDERED: fentaNYL 100 MCG/2 ML VIAL ONE (11:37)
[2024-03-07] MEDS ORDERED: MIDAZOLAM 2 MG/2 ML VIAL ONE (11:37)
[2024-03-07] MEDS ORDERED: PROPOFOL 500 MG/50 ML 500 MG/50 ML VIAL ONE (11:38)
[2024-03-07] MEDS ORDERED: LACTATED RINGERS 1,000 ML IV SCH (12:00)
[2024-03-07] MEDS ORDERED: lidocaine 1% 20 ML MDV ONE (12:08)
[2024-03-07] MEDS ORDERED: BUPIVACAINE 0.25% PF 10 ML VIAL ONE ×2 (12:08→13:10)
--- NOTE | 2024-03-07 12:33 | HISTORY & PHYSICAL EXAMINATION ---
Chief Complaint - Chief Complaint Chief Complaint: rigth groin bulge History of Present Illness - History Obtained From Records Reviewed: yes History obtained from: pt Exam Limitations: none - History of Present Illness HPI Comment/Other: symptomatic right inguinal hernia, possible recurrent. inguinal hernia repair 30 to 40 years ago History - Past Medical History Cardiovascular: reports: Hypertension, High cholesterol Respiratory: reports: None Neuro: reports: CVA, Seizure disorder Endocrine/Autoimmune: reports: None GI: reports: GERD, Hiatal hernia : reports: Benign prostate hypertrophy, Kidney stones HEENT: reports: Chronic vision loss, Chronic hearing loss Psych: reports: None Musculoskeletal: reports: None Derm: reports: None MRSA Hx?: No - Past Surgical History General: reports: Colonoscopy, EGD HEENT: reports: Tonsil/Adenoidectomy - POLST Patient has POLST: No Meds/Allgy - Home Medications Home Medications: Ambulatory Orders Medication Instructions Recorded Confirmed Aspirin [Aspirin EC] 325 mg PO DAILY 03/12/22 03/07/24 Atorvastatin Calcium [Lipitor] 80 mg PO DAILY 03/12/22 03/01/24 Levetiracetam [Spritam] 1,000 mg PO DAILY 03/12/22 03/01/24 Lisinopril [Zestril] 5 mg PO DAILY 03/12/22 03/01/24 Tamsulosin [Flomax] 0.4 mg PO DAILY 03/12/22 03/07/24 - Allergies Allergies/Adverse Reactions: Allergies Allergy/AdvReac Type Severity Reaction Status Date / Time No Known Drug Allergies Allergy Verified 11/08/23 13:58 Review of Systems - Other Findings Other Findings: 10 pt ros as above otherwise unremarkable Exam - Vital Signs Vital Signs: Vital Signs x48h Temp Pulse Resp BP Pulse Ox 03/07/24 10:57 36.3 C L 57 L 16 118/61 100 - Physical Exam General Appearance: positive: No acute distress, Alert Eyes Bilateral: positive: PERRL, EOMI ENT: positive: No signs of dehydration Neck: positive: No JVD, Trachea midline Respiratory: positive: No respiratory distress Cardiovascular: positive: Regular rate & rhythm Abdomen: positive: Other (asymptomatic umbilical hernia right inguinal hernia present) Neurologic/Psychiatric: positive: Oriented x3 Conclusion/Plan - Problem List (1) Inguinal hernia Conclusion/Plan: plan open repair with mesh. parq held and consent obtained - Lab Results Lab results reviewed: Yes
[2024-03-07] MEDS ORDERED: PROPOFOL 200 MG/20 ML VIAL IVP ONE (12:43)
[2024-03-07] MEDS ORDERED: DEXAMETHASONE 4 MG/ML VIAL ONE (12:51)
[2024-03-07] MEDS ORDERED: ONDANSETRON 4 MG/2 ML VIAL ONE (12:51)
[2024-03-07] MEDS: LIDOCAINE 1% 50 ML MDV SUBQ ONE (12:59)
[2024-03-07] MEDS: BUPIVACAINE 0.25% PF 10 ML VIAL SUBQ ONE ×2 (12:59)
[2024-03-07] MEDS ORDERED: SODIUM CHLORIDE 0.9% 10 ML VIAL IVP ONE (13:08)
[2024-03-07] MEDS ORDERED: ePHEDrine 50 MG/ML VIAL IVP ONE (13:08)
[2024-03-07] MEDS ORDERED: HYDROcod/ACETAM 5/325 MG TABLET PO PRN (14:00)
[2024-03-07 14:07] VITALS: O2SAT 97
--- NOTE | 2024-03-07 14:14 | ANESTHESIA POST OP EVALUATION ---
Anesthesia Post Eval - Post Anesthesia Eval Vitals: Last Vital Signs Temp 36.4 C L 03/07/24 14:05 Pulse 59 L 03/07/24 14:05 Resp 12 03/07/24 14:05 BP 116/68 03/07/24 14:05 Pulse Ox 97 03/07/24 14:05 O2 Flow Rate CV Function Including HR & BP: Stable Pain Control: Satisfactory Nausea & Vomiting: Negative Mental Status: Baseline Respiratory Status: Airway Patent Hydration Status: Satisfactory Anesthesia Complications: None
--- NOTE | 2024-03-07 14:35 | OPERATIVE REPORT ---
Operative Report - General Procedure Date: 03/07/24 Planned Procedure: open right inguinal hernia repair with mesh Pre-Op Diagnosis: right inguinal hernia, possibly recurrent Procedure Performed: open right inguinal hernia repair with mesh Post Op Diagnosis: recurrent direct inguinal hernia - Procedure Note Primary Surgeon: scott fields Anesthesia Technique: Local, MAC Pathology: ilioinguinal nerve removed. not sent Estimated Blood Loss (mL): 2 Drain/Tube Type: Other (none) Indications: painful hernia bulge Findings: as above Complications: none - Other Other Information/Narrative: The patient was properly identified brought to the operating room and placed in supine position. Monitored anesthesia care and IV sedation was given. He was prepped and draped in a sterile fashion and given preoperative antibiotics. He has history of an open inguinal hernia repair 30 to 40 years earlier. After hair was clipped and with the bright lights a right inguinal incision scar was present. Local anesthetic was given throughout the procedure. A right inguinal incision was made in the direction of Felecia's lines. Significant scar tissue was present. The superficial epigastric vein was previously divided the aponeurosis was opened in the direction of its fibers. The prior repair became detached from fascia and possibly tore the fascia away. Alternatively he may have had a releasing procedure. The prior mesh was loose and bulging part of it was incorporated. Cord structures were mobilized and brought up. The ilioinguinal nerve was already scarred. It was excised back to musculature. A larger piece of mesh cut from polypropylene was placed Nestor fashion. Mesh was secured down close to the pubic tubercle along the shelving border of Poupart's ligament and medially along musculature with multiple 0 Ethibond sutures.. The medial tail of the mesh was secured to the shelving border of Poupart's ligament with 2 interrupted 0 Ethibond sutures recreating an internal ring of appropriate size. The aponeurosis was closed with a running 2-0 Vicryl suture. Óscar's was closed with interrupted 3-0 Vicryl suture. Skin was closed with a 4-0 running Monocryl subcuticular suture. Dressing was applied. He tolerated the procedure well was awakened and brought to recovery in good condition.
[2024-03-07 15:03] VITALS: BP 146/70
== END 2024-03-07 10:27 | disposition home or self-care (01) ==
LOC: SDS 10:26
PROVIDERS: ATTEND Surgery
DX: K40.91 Unilateral inguinal hernia, without obstruction or gangrene, recurrent (principal); G40.909 Epilepsy, unspecified, not intractable, without status epilepticus; I10 Essential (primary) hypertension
CPT/HCPCS: 49520; C1781; J7120